=== PATIENT | female | born 1935 | race Caucasian/White ===

== ENCOUNTER 2018-10-12 14:07 | Inpatient (IN) | payer OTHER ==
[~2018-10-12] VITALS: Ht 162.6 cm; Wt 77.1 kg
[2018-11-10] MEDS ORDERED: VERELAN120 MG PO (13:31)
[2018-11-10] MEDS ORDERED: METFORMIN HCL500 MG PO (13:32)
[2018-11-10] MEDS ORDERED: TRANDOLAPRIL4 MG PO (13:32)
[2018-11-10] MEDS ORDERED: LIPITOR20 MG PO (13:32)
[2018-11-10] MEDS ORDERED: SYNTHAMIN 173000 ML (13:33)
[2018-11-10] MEDS ORDERED: PNEU16DI2 IM (13:33)
[2018-11-10] MEDS ORDERED: LOSARTAN POTASS50 MG PO (13:34)
[2018-11-18] MEDS ORDERED: RECTICARE30 GM TOP (08:38)
== END 2018-11-18 12:21 | disposition home or self-care (01) | DRG 395 ==
LOC: SURG 11-17 05:40 → O/R 11-17 05:40 → SURH 11-17 07:00 → SURG 11-17 11:02
PROVIDERS: ADMIT Surgery
PROC: 3E0T3BZ Introduction of Anesthetic Agent into Peripheral Nerves and Plexi, Percutaneous Approach (ICD-10-PCS; 2018-11-17)
PROC: 0DBP8ZX Excision of Rectum, Via Natural or Artificial Opening Endoscopic, Diagnostic (ICD-10-PCS; principal; 2018-11-17 07:00)
DX: D12.8 Benign neoplasm of rectum (principal); D37.4 Neoplasm of uncertain behavior of colon; E11.9 Type 2 diabetes mellitus without complications; Z79.4 Long term (current) use of insulin

== ENCOUNTER 2020-06-11 08:18 | Day surgery (SDC) | payer OTHER ==
[~2020-06-11 08:18] MED LIST: LIPITOR20 MG PO; LOSARTAN POTASS50 MG PO; METFORMIN HCL500 MG PO; PNEU16DI2 IM; RECTICARE30 GM TOP; SYNTHAMIN 173000 ML; TRANDOLAPRIL4 MG PO; VERELAN120 MG PO
== END 2020-06-11 13:32 | disposition home or self-care (01) ==
LOC: AMB-ENDOS 08:18
PROVIDERS: ATTEND Surgery
DX: K62.89 Other specified diseases of anus and rectum (principal); Z20.828 Contact with and (suspected) exposure to other viral communicable diseases